=== PATIENT | female | born 1990 | race Caucasian/White ===

== ENCOUNTER → 2024-02-12 14:57 | Outpatient (REF) | payer OTHER, SELFPAY | LOC: RAD 14:57 | PROVIDERS: ATTENDING PHYSICIAN Student in an Organized Health Care Education/Training Program; FAMILY PHYSICIAN Nurse Practitioner Family | DX: O26.851 Spotting complicating pregnancy, first trimester (principal) | CPT/HCPCS: 76801 ==

== ENCOUNTER 2024-02-14 05:25 | Emergency (ER) | payer OTHER, SELFPAY ==
[2024-02-14] VITALS (11 sets, daily range): BP systolic 90–105; BP diastolic 54–74; BMI 21.1
[2024-02-14 06:05] LABS: % Basophils 0.7 % (0-2); % Eosinophils 1.1 % (0-6); % Immature Granulocytes 0.3 % (0-0.5); % Lymphocytes 32.6 % (20.5-51.1); % Monocytes 5.1 % (1.7-9.3); % Neutrophils 60.2 % (42.2-75.2); Absolute Basophils 0.1 10^3/uL (0-0.2); Absolute Eosinophils 0.1 10^3/uL (0-0.7); Absolute Lymphocytes 2.4 10^3/uL (1.2-3.4); Absolute Monocytes 0.4 10^3/uL (0.1-0.6); Absolute Neutrophils 4.5 10^3/uL (1.4-6.5); Hematocrit 30.7 % (37.0-47.0); Hemoglobin 10.9 g/dL (12.0-16.0); Mean Corp Hgb Conc. 35.5 g/dL (33.0-37.0); Mean Corpuscular Hgb 33.1 pg (27.0-31.0); Mean Corpuscular Volume 93.3 fL (81.0-99.0); Mean Platelet Volume 11.3 fL (7.4-10.4); Nucleated Red Blood Cells % 0 %; Platelet Count 173 10^3/uL (130-400); Red Blood Cell Count 3.29 10^6/uL (4.20-5.40); Red Cell Dist. Width 11.7 % (11.5-14.5); White Blood Cell Count 7.4 10^3/uL (4.8-10.8)
[2024-02-14 06:33] LABS: ALT (SGPT) 15 U/L (0-35); AST (SGOT) 19 U/L (14-36); Albumin 3.5 g/dl (3.5-5.0); Alkaline Phosphatase 37 U/L (38-126); Blood Urea Nitrogen 12 mg/dl (7-17); Calcium 8.2 mg/dl (8.4-10.2); Carbon Dioxide 21 mmol/L (22-30); Chloride 104 mmol/L (98-107); Estimated Creatinine Clearance 84 ml/min; Glucose 120 mg/dl (70-99); Potassium 3.7 mmol/L (3.5-5.1); Sodium 136 mmol/L (135-145); Total Bilirubin 0.5 mg/dl (0.2-1.3); Total Protein 5.8 g/dl (6.3-8.2); eGFR > 60.00
--- NOTE | 2024-02-14 07:20 | EDRN ---
"the pt was received from previous agate setter RN, the pt is resting in stretcher in the lowest position, side rails up x2, call be within reach, HOB elevated, NSR in the 70's, last BP 105/66 (77), RA Sp022 100%, no c/o SOB, no c/o chest pain, "Stoney currently at the pts bedside, the pt ambulated to the bathroom and back to the stretcher with no issues, no c/o lightheadedness or dizziness, moderate amount of blood in the toilet after the pt urinated, will continue to monitor the pt closely"
--- NOTE | 2024-02-14 07:36 | ED.GENMED ---
History of Present Illness
General
Chief Complaint: Vaginal Bleeding
Source: patient
Exam Limitations: none
Time Seen by Provider: 02/14/24 07:21
History of Present Illness
History of Present Illness:
See MDM
Past History
Past History
ED Past Medical History: None
ED Past Surgical History: None
Social History
Tobacco: Non-smoker
Alcohol: None
Phy Exam
Physical Exam
Physical Exam:
See MDM
Course
Orders/Labs/Results
Orders:
Orders
02/14/24 05:47
IV Insert/Care/Rem.- Treatment PRN
Pulse Ox/spot Check [RESP] Urgent
Quantity: 1
Special Instructions: ON ROOM AIR
02/14/24 05:49
Type+Screen Urgent
Complete Blood Count/With Diff Urgent
Comprehensive Metabolic Panel Urgent
02/14/24 05:57
ABO2 Routine
BBK Wristband Number:
Associate notified that ABO2 has been ordered: JOSI
Date: 02/14/24
Time: 05:55
Relationship Manager ID: [id number]
Abnormal Lab Results
02/14/24
05:49
RBC 3.29 L 10^6/uL
(4.20-5.40)
Hgb 10.9 L g/dL
(12.0-16.0)
Hct 30.7 L %
(37.0-47.0)
MCH 33.1 H pg
(27.0-31.0)
MPV 11.3 H fL
(7.4-10.4)
Carbon Dioxide 21 L mmol/L
(22-30)
Glucose 120 H mg/dl
(70-99)
Calcium 8.2 L mg/dl
(8.4-10.2)
Alkaline Phosphatase 37 L U/L
(38-126)
Total Protein 5.8 L g/dl
(6.3-8.2)
02/14/24 05:49
02/14/24 05:49
Vital Signs
Initial and Last Documented VS:
Initial Vital Signs
Temp Pulse Resp Pulse Ox
98.4 F 63 18 100
02/14/24 05:27 02/14/24 05:27 02/14/24 05:27 02/14/24 05:27
Last Documented Vital Signs
Temp Pulse Resp BP Pulse Ox
97.5 F 67 15 97/59 100
02/14/24 07:02 02/14/24 07:02 02/14/24 07:02 02/14/24 07:02 02/14/24 07:02
MDM/Problems Addressed
Differential Diagnosis Includes:
HPI and MDM Narrative:
33-year-old female presenting with vaginal bleeding. Patient was diagnosed with spontaneous a few days ago. She was given the option of Cytotec versus D&E. She was unsure which direction she was going to take. She decided to take the
Cytotec yesterday. Since then, she had about 6-7 soaked pads with tissue. Patient started get worried so she came to the hospital. On exam, she is a soft nontender abdomen. Nursing staff indicating that the bleeding is improving. Patient
acknowledges this and agrees.
I did reach out to OB on-call to let them know that she decided on the Cytotec and this is likely all expected. OB agrees and will have the office reach out to her to repeat ultrasound a few weeks. Patient happy with plan
Physical exam
General: Well appearing and non-toxic
HEENT: protecting airway
Neck: appears supple
CV: No evidence of cyanosis
Resp: No accessory muscle use
Abd: Non-distended. Soft and nontender
Extremities: No deformities
Neuro: alert
Psych: Normal affect
Skin: Intact
Problems Addressed including Acute and Chronic Conditions affecting care:
1. Vaginal bleeding
Acuity: acute
Prognosis: stable
Details: in the setting of Cytotec. Discussed expectant management
Differential Diagnosis (but not limited to): Vaginal bleeding, miscarriage
Testing considered: Repeat ultrasound
Drug therapy (if applicable): OTC meds, please see d/c instruction regarding Rx drugs
Amount and/or Complexity of Data Reviewed
Clinical info obtained from: Patient
External data reviewed: N/A
Labs I independently reviewed (but not limited to): Hemoglobin
Radiology: N/A
Pulse Ox: not hypoxic
EKG independently reviewed: N/A
Corrections Lieutenant: N/A
Critical Care: N/A
Risk of Complication:
Social Determinants of health: Good social support
Discussed with other providers: OB
Escalation of Care includes Admit/Obs: After being observed in the Emergency Department, pt stable for discharge.
Occasional wrong word or 'sound a like' substitutions may have occurred due to the inherent limitations of voice recognition software. Read the chart carefully and recognize, using context, where substitutions have occurred.
*Critical Care Note
Total Time (30-74mins, 75-104mins- exclusive of procedures): Not Applicable
ED Attending Note
-
Portions of this chart may have been created with voice recognition software.� Occasional wrong word or��sound alike� substitutions may have occurred due to the inherent limitations of voice recognition software.
Discharge Plan
Departure
Patient Disposition: Home (Routine Discharge)
Date of Disposition: 02/14/24
Time of Disposition: 07:46
Patient with high blood pressure during this ER visit?: No
Discharge Problem:
Vaginal bleeding
Prescriptions:
No Action
No Current Medications
0
Referrals:
UNKNOWN - PT NOT,INTERVIEWE [Family Provider] -
Activity Restrictions/Additional Instructions:
As we discussed, your bleeding is expected from the medication. The OB team is aware you were here today and they will reach out to you to set up a repeat ultrasound in the next few weeks. Please return for worsening symptoms or uncontrolled
bleeding.
Interventions
Interventions:
*Risk Screen - Suicide Last Done: 02/14/24 05:27
*General Assessment Last Done: 02/14/24 05:27
*Neglect/Abuse Screening Last Done: 02/14/24 05:27
ED- Fall Risk Assessment Last Done: 02/14/24 07:02
*ED COVID-19 Vaccine History Last Done: 02/14/24 05:40
ED-Female Genitourinary Assessment Last Done: 02/14/24 07:02
Discharge Date and Time
Print Language: GREENLANDIC
--- NOTE | 2024-02-14 07:47 | EDRN ---
Dr. Shea currently at the pts bedside speaking with the pt
== END 2024-02-14 08:35 | disposition home or self-care (01) ==
LOC: EMR 05:25
PROVIDERS: EMERGENCY PHYSICIAN Student in an Organized Health Care Education/Training Program
DX: O03.9 Complete or unspecified spontaneous abortion without complication (principal)
CPT/HCPCS: 99283; 80053; 85025; 86850; 86900; 86901

== ENCOUNTER 2024-03-04 06:51 | Day surgery (SDC) | payer OTHER, SELFPAY ==
[2024-03-04] VITALS (8 sets, daily range): BP systolic 104–120; BP diastolic 70–77; BMI 21.3
[2024-03-04] MEDS: TYLENOL 1000 MG PO (10:04)
[2024-03-04] MEDS: CELEBREX 200 MG PO (10:04)
[2024-03-04] MEDS: NORMOSOL-R/PLASMALYTE-A 1000 IV (10:40)
[2024-03-04 11:01] LABS: Hematocrit 30.8 % (37.0-47.0); Hemoglobin 10.6 g/dL (12.0-16.0)
[2024-03-04] MEDS: VIBRAMYCIN 260 MG IV (11:56)
== END 2024-03-04 14:56 | disposition home or self-care (01) ==
LOC: SDS 06:51
PROVIDERS: ATTENDING PHYSICIAN Obstetrics & Gynecology; FAMILY PHYSICIAN Internal Medicine
DX: O03.4 Incomplete spontaneous abortion without complication (principal); O02.1 Missed abortion; N85.4 Malposition of uterus
CPT/HCPCS: 59820; 88305; 85014; 85018; 86850; 86900; 86901

== ENCOUNTER → 2024-08-17 07:40 | Outpatient (REF) | payer OTHER, SELFPAY | LOC: PNTC 07:40 | PROVIDERS: ATTENDING PHYSICIAN Student in an Organized Health Care Education/Training Program | DX: Z34.80 Encounter for supervision of other normal pregnancy, unspecified trimester (principal) | CPT/HCPCS: 76805; 76817 ==

== ENCOUNTER 2024-12-31 08:49 | Inpatient (IN) | payer OTHER, SELFPAY ==
[2024-12-31 09:10] VITALS: BP 130/79; BMI 28.7
[2024-12-31 10:17] LABS: Hematocrit 38.4 % (37.0-47.0); Hemoglobin 13.6 g/dL (12.0-16.0); Mean Corp Hgb Conc. 35.4 g/dL (33.0-37.0); Mean Corpuscular Volume 93.0 fL (81.0-99.0); Nucleated Red Blood Cells % 0 %; Platelet Count 164 10^3/uL (130-400); Red Cell Dist. Width 12.5 % (11.5-14.5)
[2024-12-31] MEDS: VANCOCIN 530 MG IV ×2 (10:36→18:59)
[2024-12-31] MEDS: LR 1000 IV ×4 (10:40→22:54)
[2024-12-31] MEDS: FENTANYL/BUPIVACAINE 100 EPIDURAL ×2 (12:36→21:03)
[2024-12-31] MEDS: SUBLIMAZE 100 MCG EPIDURAL (12:36)
[2024-12-31] MEDS: PITOCIN 30 UNITS/NSS 500 ML IV (15:38)
[2025-01-01] MEDS: TYLENOL 1000 MG PO (00:45)
[2025-01-01] MEDS: VANCOCIN 530 MG IV (03:01)
[2025-01-01] MEDS: PITOCIN 30 UNITS/NSS 500 ML IV (04:23)
[2025-01-01] MEDS: COLACE 100 MG PO (19:59)
[2025-01-01] MEDS: PRENATAL PLUS 1 TABLET PO (21:41)
[2025-01-02 04:44] LABS: Hematocrit 32.4 % (37.0-47.0); Hemoglobin 11.3 g/dL (12.0-16.0)
[2025-01-02] MEDS: COLACE 100 MG PO ×2 (08:53→20:21)
[2025-01-02] MEDS: MOTRIN 600 MG PO (20:21)
[2025-01-03] MEDS: COLACE 100 MG PO (08:32)
[2025-01-03] MEDS: TYLENOL 650 MG PO (08:32)
[2025-01-03 08:41] LABS: Hematocrit 34.3 % (37.0-47.0); Hemoglobin 11.9 g/dL (12.0-16.0); Mean Corp Hgb Conc. 34.7 g/dL (33.0-37.0); Mean Corpuscular Volume 95.3 fL (81.0-99.0); Platelet Count 153 10^3/uL (130-400); Red Cell Dist. Width 12.9 % (11.5-14.5)
[2025-01-03 08:55] LABS: ALT (SGPT) 21 U/L (0-35); AST (SGOT) 37 U/L (14-36); Albumin 3.0 g/dl (3.5-5.0); Alkaline Phosphatase 135 U/L (38-126); Blood Urea Nitrogen 16 mg/dl (7-17); Calcium 8.7 mg/dl (8.4-10.2); Carbon Dioxide 26 mmol/L (22-30); Chloride 111 mmol/L (98-107); Estimated Creatinine Clearance 110 ml/min; Glucose 81 mg/dl (70-99); Potassium 4.1 mmol/L (3.5-5.1); Sodium 138 mmol/L (135-145); Total Protein 5.9 g/dl (6.3-8.2); eGFR > 60.00
[2025-01-04 11:06] LABS: Syphilis/T. pallidum Ab Reflex Negative (Negative)
== END 2025-01-03 11:40 | disposition home or self-care (01) | DRG 807 ==
LOC: LDRP 08:49
PROVIDERS: ADMITTING PHYSICIAN Student in an Organized Health Care Education/Training Program; FAMILY PHYSICIAN Nurse Practitioner
PROC: 10907ZC Drainage of Amniotic Fluid, Therapeutic from Products of Conception, Via Natural or Artificial Opening (ICD-10-PCS; 2024-12-31)
PROC: 4A1HXCZ Monitoring of Products of Conception, Cardiac Rate, External Approach (ICD-10-PCS; 2024-12-31)
PROC: 10D07Z6 Extraction of Products of Conception, Vacuum, Via Natural or Artificial Opening (ICD-10-PCS; 2025-01-01)
PROC: 0KQM0ZZ Repair Perineum Muscle, Open Approach (ICD-10-PCS; 2025-01-01)
DX: O99.824 Streptococcus B carrier state complicating childbirth (principal); Z37.0 Single live birth; O70.1 Second degree perineal laceration during delivery; Z3A.39 39 weeks gestation of pregnancy; Z88.0 Allergy status to penicillin
CPT/HCPCS: 36415; 80053; 85014; 85018; 85025; 85027; 86780; 86850; 86900; 86901